=== PATIENT | female | born 1995 | race Two or more races ===

== ENCOUNTER 2018-12-02 06:39 | Day surgery (SDC) | payer BC ==
[~2018-12-02] VITALS: Ht 167.6 cm; Wt 68.5 kg
[2018-12-02] MEDS ORDERED: METHYLENE BLUE 1% 10 ML VIAL. ONE (06:57)
[2018-12-02] MEDS ORDERED: SURGICEL HEMOSTAT 4X8 EACH. ONE (06:58)
[2018-12-02] MEDS ORDERED: BUPIVACAINE-EPI 0.25%-1:200000 MPF 30 ML VIAL. ONE (06:58)
[2018-12-02] MEDS ORDERED: MORPHINE SULFATE 2 MG/ML VIAL. IV PRN (07:00)
[2018-12-02] MEDS ORDERED: LIDOCAINE 1% PF 2 ML VIAL. ID PRN (07:00)
[2018-12-02] MEDS ORDERED: HYDROmorphone 2 MG/ML VIAL IV PRN (07:00)
[2018-12-02] MEDS ORDERED: ONDANSETRON PF 4 MG/2 ML VIAL. IV PRN ×2 (07:00→09:45)
[2018-12-02] MEDS ORDERED: PROCHLORPERAZINE 10 MG/2 ML VIAL. IV PRN ×2 (07:00→09:45)
[2018-12-02] MEDS ORDERED: fentaNYL PF VIAL 100 MCG/2 ML VIAL IV PRN ×2 (07:00)
[2018-12-02] MEDS: IV RINGERS,LACTATED 1000ML 1,000 ML IV SCH ×2 (07:14→09:51)
[2018-12-02 07:20] LABS: BASO # 0.1 x10^3/uL (0.0-0.2); BASO % 1 % (0-3); EOS # 0.3 x10^3/uL (0.0-0.7); EOS % 3 % (0-3); HEMATOCRIT 38.2 % (36.0-47.0); HEMOGLOBIN 13.2 g/dL (12.0-15.5); LYMPH # 2.2 x10^3/uL (1.0-4.8); LYMPH % 26 % (24-48); MEAN CORPUSCULAR HEMOGLOBIN 30 pg (25-35); MEAN CORPUSCULAR HGB CONC 35 g/dL (31-37); MEAN CORPUSCULAR VOLUME 85 fL (79-100); MONO # 0.7 x10^3/uL (0.0-1.1); MONO % 9 % (0-9); NEUT # 5.1 x10^3uL (1.8-7.7); NEUT % 61 % (31-73); PLATELET COUNT 308 x10^3/uL (140-400); RED BLOOD COUNT 4.48 x10^6/uL (3.50-5.40); WHITE BLOOD COUNT 8.3 x10^3/uL (4.0-11.0)
[2018-12-02] MEDS ORDERED: PROPOFOL 20 ML IV ONE (07:30)
[2018-12-02] MEDS ORDERED: fentaNYL PF VIAL 100 MCG/2 ML VIAL ONE ×2 (07:30→08:41)
[2018-12-02] MEDS ORDERED: LIDOCAINE 2% PF 5 ML VIAL. ONE (07:30)
[2018-12-02] MEDS ORDERED: SUCCINYLCHOLINE 200 MG/10 ML VIAL. ONE (07:31)
[2018-12-02] MEDS ORDERED: ROCURONIUM 50 MG/5 ML VIAL. ONE (07:31)
[2018-12-02] MEDS ORDERED: MIDAZOLAM HCL/PF 2 MG/2 ML VIAL. ONE (07:54)
[2018-12-02] MEDS ORDERED: ONDANSETRON PF 4 MG/2 ML VIAL. ONE (08:28)
[2018-12-02] MEDS ORDERED: DEXAMETHASONE SOD PHOS 20 MG/5 ML VIAL. ONE (08:28)
[2018-12-02] MEDS ORDERED: SEVOFLURANE 31 TO 60 MINUTES. IH ONE (08:33)
[2018-12-02] MEDS ORDERED: NEOSTIGMINE 10 MG/10 ML VIAL. ONE (08:33)
[2018-12-02] MEDS ORDERED: GLYCOPYRROLATE 1 MG/5 ML VIAL. ONE (08:34)
[2018-12-02 08:43] LABS: U PREG PATIENT NEGATIVE (NEG)
[2018-12-02] MEDS ORDERED: FAMOTIDINE 20 MG/2 ML VIAL ONE (08:54)
[2018-12-02] MEDS ORDERED: KETOROLAC 30 MG/ML INJ FOR OR. INJ ONE (09:20)
--- NOTE | 2018-12-02 09:35 | PDOC ---
BRIEF OPERATIVE NOTE Date: Dec 02, 2018 Pre-Op Diagnosis 1. AUB 2. CPP Post-Op Diagnosis Same Procedure Performed 1. Op HSC 2. Dx LPSC 3. CHromotubation Surgeon Dr. Last Anesthesia Type: General Blood Loss less than 10 ml Specimens Obtained endometrial biopsy Findings nml size uterus, homogenous endometrial lining, fallopian tube ostia appear patent alexia.; small uterine perforation during chromotubation.; nml fallopian tubes and ovaries alexia.; no evidence endometriosis Complications none Operative Note see dictation SONY LAST Jr, MD Dec 02, 2018 09:35
[2018-12-02] MEDS ORDERED: ZOLPIDEM 5 MG TABLET. PO PRN (09:45)
[2018-12-02] MEDS ORDERED: 0.9 % SODIUM CHLORIDE 10 ML DISP.SYRIN. IV PRN (09:45)
[2018-12-02] MEDS ORDERED: oxyCODONE/APAP 5/325 1 TAB TABLET PO PRN (09:45)
[2018-12-02] MEDS ORDERED: DEXTROSE 50% 25 GM / 50ML DISP.SYRIN. IV PRN (09:45)
[2018-12-02] MEDS ORDERED: diphenhydrAMINE 50 MG/ML VIAL IV PRN (09:45)
[2018-12-02] MEDS ORDERED: CALCIUM CARBONATE 500 MG TAB.CHEW PO PRN (09:45)
[2018-12-02] MEDS ORDERED: diphenhydrAMINE HCL 25 MG CAPSULE PO PRN (09:45)
[2018-12-02] MEDS ORDERED: SIMETHICONE 80 MG TAB.CHEW PO PRN (09:45)
[2018-12-02] MEDS ORDERED: KETOROLAC 30 MG/ML VIAL. IV PRN (09:45)
--- NOTE | 2018-12-02 10:14 | OP ---
DATE OF SURGERY: 12/02/2018 PREOPERATIVE DIAGNOSES: 1. Abnormal uterine bleeding. 2. Chronic pelvic pain. POSTOPERATIVE DIAGNOSES: 1. Abnormal uterine bleeding. 2. Chronic pelvic pain. PROCEDURE: 1. Operative hysteroscopy. 2. Diagnostic laparoscopy. 3. Chromotubation. SURGEON: Sony Last MD ANESTHESIA: GETA. ESTIMATED BLOOD LOSS: Less than 10 mL. COMPLICATIONS: None. FINDINGS: Normal size uterus, homogenous endometrial lining. Fallopian tube ostia appeared normal. ____ appeared patent bilaterally during hysteroscope. Small uterine perforation during the chromotubation, in which the fallopian tubes failed to dilate. Normal fallopian tubes and ovaries appeared bilaterally, no evidence of endometriosis. SUMMARY: A 23-year-old female with abnormal uterine bleeding and chronic pelvic pain. The patient was counseled on the risks, benefits and expectations of operative hysteroscopy as well as diagnostic laparoscopy and chromotubation, she voiced clear understanding and desired to proceed. DESCRIPTION OF PROCEDURE: The patient was taken to the surgery suite and placed in dorsal lithotomy position. She was prepped with Betadine solution for a vaginal prep and ChloraPrep for abdominal prep. After adequate anesthesia, weighted speculum and curved Nino were placed vaginally. The anterior lip of the cervix was grasped with single-tooth tenaculum. The cervix was dilated with Hegar dilators up to a size 7. The TruClear hysteroscope was then placed. The endometrial cavity appeared small and homogenous endometrial lining. The fallopian tube ostia appeared patent bilaterally. The hysteroscope was then removed. The uterine acorn manipulator was then placed along with the tubing for the chromotubation using methylene blue dye in a 60 mL syringe. Small transverse incision was made just below the umbilicus with the scalpel. The Veress needle was then placed through the infraumbilical incision site. The abdomen was allowed to insufflate up to 1-1/2 liters CO2 gas. The Veress needle was then removed, 5 mm trocar was placed. The camera was positioned. The uterus appeared normal size. Fallopian tubes and ovaries appeared normal bilaterally. There was no evidence of endometriosis. A second incision was made in the left lower quadrant with a scalpel, in which 5 mm trocar was placed with aid of suction steel box toe inserter. The uterus was then manipulated. The 60 mL syringe was slowly pushed. There appeared to be methylene blue dye coming from a small perforation area on the uterus from the posterior wall of the uterus. The attempt was to continue with the procedure; however, the fallopian tubes did not dilate as anticipated to do a full evaluation of the fallopian tubes. The fimbria of the fallopian tubes appeared normal bilaterally without any adhesions. Suction irrigation was utilized to irrigate the posterior cul-de-sac and the ovaries appeared normal bilaterally. The trocars were then removed under direct visualization. Abdomen was allowed to deflate as much as possible along with mechanical manipulation. The two skin incisions were reapproximated using 4-0 Vicryl suture in subcuticular manner. A 0.25% Marcaine with epinephrine was injected at each incision site. The single-tooth tenaculum and uterine acorn manipulator were then removed. The patient tolerated the procedure well and was taken to recovery room in stable condition. Sponge and needle count correct x 3. SONY LAST MD DR: YANICK/haris JOB#: [id number] / [id number]
--- NOTE | 2018-12-02 10:32 | DISCH ---
DISCHARGE INSTRUCTIONS Condition on Discharge Condition on Discharge: Stable Activity After Discharge Activity Instructions for Disc: Activity as tolerated Lifting Instructions after Dis: No heavy lifting Driving Instructions after Dis: Do not drive today Diet after Discharge Diet after Discharge: Regular Contacting the DRJunito after DC Call your doctor for: Concerns you may have Follow-Up Follow up with: Dr. Last in 1 week. SONY LAST Jr, MD Dec 02, 2018 10:32
[2018-12-02] MEDS ORDERED: OXYC1TAB15 PO (10:57)
[2018-12-02 11:15] VITALS: BP 123/66
[2018-12-02] MEDS ORDERED: ACETAMINOPHEN 325 MG TABLET. PO ONE (11:15)
[2018-12-02] MEDS ORDERED: GABAPENTIN 300 MG CAPSULE. PO SCH (14:00)
--- NOTE | 2018-12-03 16:07 | PATHOLOGY ---
[facility] Accession Number: [id number] . 01 Material submitted: . ENDOMETRIAL BIOPSY . 01 Clinical history: . Abnormal bleeding . 02 Diagnosis: Endometrial biopsy: - Blood clot and several segments of fibromuscular tissue. . (JPM:mml; 12/03/2018) [facility]/12/03/2018 . 02 Comment: Sections of the endometrial biopsy reveal segments of blood clot and several segments of benign fibromuscular tissue. There is no endometrial tissue identified. . (JPM:mml; 12/03/2018) . 02 Electronically signed: . Malachi Francisco MD, Pathologist NPI- [id number] . 01 Gross description: . The specimen is received in formalin, labeled "Jarod, Siel, endometrial biopsy" and consists of a sock containing fragments of ortiz tissue admixed with hemorrhagic material measuring 1.2 x 0.5 x 0.2 cm in aggregate which is entirely submitted in A1. (SDY; 12/02/2018) SYU/SYU . 02 Pathologist provided ICD-10: N93.9, R10.2 . 02 CPT . 732421 Specimen Comment: A courtesy copy of this report has been sent to Specimen Comment: [phone]. Specimen Comment: Report sent to Performed at: 01 [facility] [address], [place] [id number] MD Akbar Joseph MD Phone: [phone] Performed at: 02 [facility] [address] [place], [place] [id number] MD Malachi Francisco MD Phone: [phone]
== END 2018-12-02 12:44 | disposition home or self-care (01) ==
LOC: SURG 06:39
PROVIDERS: ATTEND Obstetrics & Gynecology
DX: N93.9 Abnormal uterine and vaginal bleeding, unspecified (principal); R10.2 Pelvic and perineal pain; K08.409 Partial loss of teeth, unspecified cause, unspecified class
CPT/HCPCS: 36415; 49320; 58350; 58558; 81025; 85025; 86850; 86900; 86901; 88305; A7015; J0330; J0696; J0780; J1100; J1885; J2001; J2250; J2405; J2704; J2710; J3010; J3490; J7030; J7120; Q9968

== ENCOUNTER → 2019-08-09 | Outpatient (CLI) | payer OTHER ==
[2019-05-19 11:34] VITALS: BP 142/92
[~2019-08-09] MED LIST: METR500T PO; OXYC1TAB15 PO
== END | disposition home or self-care (01) ==
LOC: LAB 14:40
PROVIDERS: ATTEND Obstetrics & Gynecology
DX: N91.2 Amenorrhea, unspecified (principal)
CPT/HCPCS: 36415; 84702